=== PATIENT | male | born 1970 | race African-American/Black ===

== ENCOUNTER 2018-01-01 20:20 | Emergency (ER) | payer SELFPAY ==
[~2018-01-01] VITALS: Ht 170.2 cm; Wt 76.0 kg
[2018-01-02] MEDS: CLINDAMYCIN 600 MG in DEXTROSE 5% WATER 50 ML IV ONE (01:45)
[2018-01-02] MEDS ORDERED: KETOROLAC 30MG/ML VIAL IV ONE (01:45)
[2018-01-02 01:59] LABS: BASOPHILS % 0.4 % (0.0-2.0); EOSINOPHILS % 0.2 % (0.0-5.0); HEMATOCRIT. 41.2 % (42.0-52.0); HEMOGLOBIN. 13.6 g/dL (14.0-18.0); LYMPHOCYTES % 7.3 % (20.0-50.0); MEAN CORPUSCULAR HEMOGLOBIN 29.7 pg (28.0-32.0); MEAN CORPUSCULAR VOLUME 89.8 fL (80.0-94.0); MONOCYTES % 5.4 % (2.0-8.0); NEUTROPHILS % 86.7 % (40.0-76.0); PLATELET 362 x1000/uL (130-400); RED BLOOD CELL COUNT 4.58 mill/uL (4.7-6.1); RED CELL DISTRIBUTION WIDTH 13.2 % (11.6-14.6)
[2018-01-02 02:05] LABS: CHLORIDE 98 mEq/L (98-107)
[2018-01-02] MEDS ORDERED: CLINDAMYCIN 600 MG in SODIUM CHLORIDE 0.9% 50 ML IV NR (02:30)
[2018-01-02 06:56] VITALS: BP 128/76
== END 2018-01-02 07:45 | disposition home or self-care (01) ==
LOC: ER 20:51
DX: L03.115 Cellulitis of right lower limb (principal); L03.116 Cellulitis of left lower limb; Z86.718 Personal history of other venous thrombosis and embolism
CPT/HCPCS: 36415; 80053; 85025; 85379; 93970; 96365; 96375; 99285; J1885; J3490; Z7610; J7060

== ENCOUNTER 2018-01-04 03:50 | Emergency (ER) | payer SELFPAY ==
[~2018-01-04] VITALS: Ht 172.7 cm; Wt 68.0 kg
[2018-01-04 07:21] LABS: BASOPHILS % 0.6 % (0.0-2.0); EOSINOPHILS % 0.8 % (0.0-5.0); HEMATOCRIT. 37.6 % (42.0-52.0); HEMOGLOBIN. 12.5 g/dL (14.0-18.0); LYMPHOCYTES % 13.9 % (20.0-50.0); MEAN CORPUSCULAR HEMOGLOBIN 29.9 pg (28.0-32.0); MEAN CORPUSCULAR VOLUME 89.8 fL (80.0-94.0); MEAN PLATELET VOLUME 7.2 fl (7.4-10.4); MONOCYTES % 6.2 % (2.0-8.0); NEUTROPHILS % 78.5 % (40.0-76.0); PLATELET 344 x1000/uL (130-400); RED BLOOD CELL COUNT 4.18 mill/uL (4.7-6.1)
[2018-01-04 07:23] LABS: CHLORIDE 104 mEq/L (98-107)
[2018-01-04] MEDS ORDERED: CLINDAMYCIN PHOSPHATE 600MG/4ML VIAL IM ONE (07:45)
[2018-01-04] MEDS ORDERED: CLINDAMYCIN PHOSPHATE 600MG/4ML VIAL IM SCH (09:00)
[2018-01-04 11:07] VITALS: BP 117/68
== END 2018-01-04 11:39 | disposition home or self-care (01) ==
LOC: ER 03:50
DX: L03.116 Cellulitis of left lower limb (principal); L03.115 Cellulitis of right lower limb
CPT/HCPCS: 36415; 80053; 85025; 96372; 99284; J3490; Z7610